=== PATIENT | male | born 1970 | race Caucasian/White ===

== ENCOUNTER 2018-04-28 18:24 | Inpatient (IN) | payer MEDICAID ==
--- NOTE | 2018-04-28 18:49 | Emergency Department Record ---
History of Present Illness - General Chief complaint: Swelling of legs Stated complaint: R ANKLE /LEG SWOLLEN/RED/WARM Time Seen by Provider: 04/28/18 18:40 Source: Patient Mode of Arrival: Ambulatory Limitations: No limitations - History of Present Illness Initial comments: The patient is here due to R ankle pain, swelling, and redness for 2 weeks. He was admitted to [facility] [place] for a week and was discharged 6 days ago. The patient states he was being treated for Cellulitis then and did have an I and D performed but no purulence was expressed. The patient states he also had a neg R leg doppler performed during his stay. After discharge he was sent to the infusion center once and was told he would need to return in 2 weeks. Presently he is on no oral Abx's. Now the patient states the ankle is doing worse and is getting more painful, red, swollen and tender. He denies any trauma, fever, chills, or previous injury. MD Complaint: Extremity pain, Extremity swelling Onset/Timin -: Week(s) History of Same: No Severity scale (1-10): 5 Quality: Burning Improves with: Nothing Worsens with: Nothing Associated Symptoms: Denies other symptoms - Related Data Home Medications Medication Instructions Recorded Confirmed Last Taken No Home Med [NO HOME MEDS] 04/28/18 04/28/18 Unknown Allergies Allergy/AdvReac Type Severity Reaction Status Date / Time carbamazepine [From Tegretol] Allergy RASH Verified 04/28/18 18:43 lamotrigine [From Lamictal] Allergy RASH Verified 04/28/18 18:43 meperidine [From Demerol] Allergy PT UNSURE Verified 04/28/18 18:43 OF REACTION phenytoin [From Dilantin] AdvReac VOMITING Verified 04/28/18 18:43 Travel Screening - Travel/Exposure Within Last 30 Days Have you traveled within the last 30 days?: No - Travel/Exposure Within Last Year Have you traveled outside the [place] in the last year?: No - Additonal Travel Details Have you been exposed to anyone with a communicable illness?: No - Travel Symptoms Symptom Screening: None Review of Systems Constitutional: Denies: Chills, Fever Eyes: Denies: Eye discharge ENT: Denies: Congestion Respiratory: Denies: Cough, Dyspnea, Hemoptysis Past Medical History - SOCIAL HISTORY Smoking Status: Never smoker Alcohol Use: None Drug Use: None - RESPIRATORY Hx Respiratory Disorders: No - CARDIOVASCULAR Hx Cardio Disorders: No - NEURO Hx Neuro Disorders: Yes Hx Seizures: Yes - GI Hx GI Disorders: No - Hx Genitourinary Disorders: Yes Comment:: testicular torsion - ENDOCRINE Hx Endocrine Disorders: No - MUSCULOSKELETAL Hx Musculoskeletal Disorders: No - PSYCH Hx Psych Problems: No - HEMATOLOGY/ONCOLOGY Hx Hematology/Oncology Disorders: No Family Medical History Any Significant Family History?: No Physical Exam - General General Appearance: Alert, Oriented x3, Cooperative, No acute distress - Head Head exam: Atraumatic, Normocephalic, Normal inspection - Eye Eye exam: Normal appearance, PERRL - Extremities Extremities exam: Joint swelling (R ankle.), Normal capillary refill, Tenderness (There is diffuse tenderness to the anterio ankle area.). negative: Normal inspection (The R ankle is tender, swollen, erythematous and warm. ), Calf tenderness, Full ROM, Pedal edema - Neurological Neurological exam: Alert, Normal gait. negative: Abnormal gait, Motor sensory deficit Course Vital Signs 04/28/18 18:27 Temperature 98.6 F Pulse Rate 76 Respiratory 16 Rate Blood Pressure 150/92 Pulse Ox 96 - Reevaluation(s) Reevaluation #1: The patient is resting comfortably with no changes presently. We will start him on Percocet for pain and Clindamycin for an IV Abx. Due to failing outpatient therapy I did recommend inpatient care and the patient agreed. I then did discuss the case with Lety (DIRECTOR BIOINFORMAT[employer]) and she does accept the admission for Dr. Harley. 04/28/18 19:35 Reevaluation #2: The patient's records from [facility] [place] were reviewed and he did have a neg R leg Doppler on 04/20 and did have an I and D which did not find any purulence. 04/28/18 19:36 Medical Decision Making - Data Complexity MDM Data: Labs Ordered and/or Reviewed, X-Ray Ordered and/or Reviewed - Lab Data Result diagrams: 04/28/18 18:50 04/28/18 18:50 - Radiology Data Radiology results: Report reviewed (R ankle: Neg for acute bony changes.) Disposition Disposition: Discharge Clinical Impression: Cellulitis Qualifiers: Site of cellulitis: unspecified site Qualified Code(s): L03.90 - Cellulitis, unspecified Disposition: Still a Patient at [facility] Decision to Admit: Admit from ER Decision to Admit Date: 04/28/18 Decision to Admit Time: 19:37 Accepting Physician: Cricket Time Discussed w/Accepting Physician: 19:37 Condition: (2) Stable Time of Disposition: 19:37 Quality - Quality Measures Quality Measures: N/A - Blood Pressure Screening View Details: Yes Does Patient Have Any of the Following: No Blood Pressure Classification: Hypertensive Reading Systolic Measurement: 150 Diastolic Measurement: 92 Screening for High Blood Pressure: < First Hypertensive BP, F/U Documented > [ G8950] First Hypertensive Follow-up Interventions: Referral to alternative/primary care provider.
[2018-04-28 19:01] LABS: BASO % 0.9 % (0-6); EOS % 9.1 % (0-6); HEMATOCRIT 41.7 % (42.0-52.0); HEMOGLOBIN 14.4 gm/dl (14.0-18.0); LYMPH % 47.3 % (16-45); MEAN CELL VOLUME 82.7 fl (81-97); MEAN CORPUSCULAR HEMOGLOBIN 28.6 pg (27-33); MEAN CORPUSCULAR HGB CONC 34.5 g/dl (32-36); MEAN PLATELET VOLUME 11.3 fl (7.4-10.4); MONO % 8.7 % (0-9); PLATELET COUNT 255 K/uL (130-400); RED BLOOD COUNT 5.04 M/uL (4.40-5.70)
[2018-04-28 19:13] LABS: BLOOD UREA NITROGEN 9 mg/dL (6-20); CREATININE 0.7 mg/dL (0.7-1.2); EST GLOMERULAR FILTRATION RATE > 60 mL/min
[2018-04-28 19:14] LABS: TOTAL PROTEIN 7.5 g/dL (6.6-8.7)
[2018-04-28 19:15] LABS: GLUCOSE,RANDOM 93 mg/dL (74-109)
[2018-04-28] MEDS ORDERED: CLINDAMYCIN 600MG/50ML PREMIX 600 MG/50 ML BAG IVPB ONE (19:17)
[2018-04-28 19:18] LABS: ALB/GLOB RATIO 1.5 (1.1-1.8); ALBUMIN 4.5 g/dL (4.0-5.0); ALKALINE PHOSPHATASE 124 U/L (40-129); ALT/SGPT 57 U/L (<41); AST/SGOT 32 U/L (10.0-50.0); C-REACTIVE PROTEIN 0.07 mg/dL (<0.5)
[2018-04-28] MEDS ORDERED: OXYCODONE/APAP 7.5MG/325MG TABLET PO ONE (19:29)
[2018-04-28 19:40] LABS: ERYTHROCYTE SEDIMENTATION RATE 16 mm/hr (0-15)
[2018-04-28] MEDS ORDERED: ACETAMINOPHEN 325 MG TAB PO PRN (20:18)
[2018-04-28] MEDS: CLINDAMYCIN 600MG/50ML PREMIX 600 MG/50 ML BAG IVPB SCH (21:22)
[2018-04-29] MEDS: CLINDAMYCIN 600MG/50ML PREMIX 600 MG/50 ML BAG IVPB SCH ×2 (03:51→12:21)
[2018-04-29] MEDS: OXYCODONE/APAP 7.5MG/325MG TABLET PO PRN ×2 (07:24→21:51)
--- NOTE | 2018-04-29 07:52 | RADIOLOGY REPORT ---
EXAM: RIGHT ANKLE HISTORY: RIGHT LOWER EXTREMITY SWELLING AND REDNESS. TECHNIQUE: Three views of the right ankle were obtained. Comparison: None. FINDINGS: There is soft tissue swelling. No radiopaque foreign body. No soft tissue gas. No fracture or acute osseous abnormality. No destructive or erosive change. IMPRESSION: 1. DIFFUSE SOFT TISSUE SWELLING. 2. RIGHT ANKLE OTHERWISE UNREMARKABLE. JOB NUMBER: [id number] MTDD
--- NOTE | 2018-04-29 12:18 | History & Physical ---
History of Present Illness - Date of Service Date of Service for History & Physical: 04/29/18 - History of Present Illness Admitting Diagnosis: 1. R Lower Leg Cellulitis. History of Present Illness: Joby Sheppard is a 48 y/o male presenting to the ED with right ankle and leg pain. He was recently discharged for [facility] 04/22 after a stay for treatment of RLE and foot cellulitis. While at [facility] he initially received Rocephin, then Clindamycin, Vacomycin, Zosyn, Daptomycin respectfully. He subsequently had an I & D of cellulitic area for fear of underlying abscess. No purulence was expressed and cultures did not reveal MRSA. He was then consulted by ID who recommended Dalvance infusions as outpatient. He was supposed to follow up 04/23 , the day after discharge from [facility] for first Dalvance infusion in which he did get. His next dose is supposed to be 8/8. 4 days ago right ankle became more red, swollen, painful. Venous doppler 1 week ago at [facility] was negative for DVT right leg. Patient thinks this may have all started after helping his father with yard work and thinks he may have been bitten by a spider. No previous hx of gout, he does report about a month ago when then ankle pain and redness started he was started on gout medication and indocin which did not help. While in ED lab work unremarkable for acute infection, ESR was elevated, CRP normal. Right ankle x-ray showed diffuse soft tissue swelling, otherwise normal. Admitted for observation, reinitiation of IV Clindamycin and pain control. 04/29/18- 1200- resting in bed comfortably. No fevers overnight. Reports right foot pain is about 5/10, percocet for pain is working well to keep pain controlled. Feels at this point the redness to right ankle and foot is not much improved since start of IV Clindamycin, pain is improved from 6/10. Denies any adverse reaction to antibiotics Travel Screening - Travel/Exposure Within Last 30 Days Have you traveled within the last 30 days?: No - Travel/Exposure Within Last Year Have you traveled outside the [place] in the last year?: No - Additonal Travel Details Have you been exposed to anyone with a communicable illness?: No - Travel Symptoms Symptom Screening: None Review of Systems Constitutional: Denies: Chills, Fever Eyes: Denies: Eye discharge ENT: Denies: Congestion Respiratory: Denies: Cough, Dyspnea, Hemoptysis Past Medical History - SOCIAL HISTORY Smoking Status: Never smoker Alcohol Use: None Drug Use: None - RESPIRATORY Hx Respiratory Disorders: No - CARDIOVASCULAR Hx Cardio Disorders: No - NEURO Hx Neuro Disorders: Yes Hx Seizures: Yes - GI Hx GI Disorders: No - Hx Genitourinary Disorders: Yes Comment:: testicular torsion - ENDOCRINE Hx Endocrine Disorders: No - MUSCULOSKELETAL Hx Musculoskeletal Disorders: No - PSYCH Hx Psych Problems: No - HEMATOLOGY/ONCOLOGY Hx Hematology/Oncology Disorders: No Family Medical History Any Significant Family History?: No H&P Meds/Allergies - Allergies Allergies: Allergies Allergy/AdvReac Type Severity Reaction Status Date / Time carbamazepine [From Tegretol] Allergy RASH Verified 04/28/18 18:43 lamotrigine [From Lamictal] Allergy RASH Verified 04/28/18 18:43 meperidine [From Demerol] Allergy PT UNSURE Verified 04/28/18 18:43 OF REACTION phenytoin [From Dilantin] AdvReac VOMITING Verified 04/28/18 18:43 - Home Medications Home Medications Medication Instructions Recorded Confirmed Last Taken No Home Med [NO HOME MEDS] 04/28/18 04/28/18 Unknown - Active Medications Active Medications: Current Medications Acetaminophen (Tylenol 325mg) 650 mg PO Q6H PRN PRN Reason: PAIN - MILD(1-4)/FEVER Clindamycin Phosphate (Cleocin 600 [id number]) 600 mg in 50 mls @ 100 mls/ hr IVPB Q8H [facility] Last Infusion: 04/29/18 04:29 Dose: Infused Oxycodone/Acetaminophen (Percocet 7.5-325 Mg Tablet) 1 each PO Q4H PRN PRN Reason: PAIN - MOD TO SEVERE (5-10) Stop: 05/05/18 20:19 Last Admin: 04/29/18 07:24 Dose: 1 each Physical Exam - Vital Signs Vital Signs: Vital Signs - Last 24 Hrs Temp Pulse Pulse Resp BP BP BP 04/29/18 11:41 97.7 F 72 18 144/91 04/29/18 09:00 73 18 04/29/18 07:58 97.0 F L 73 18 136/84 04/28/18 21:20 98.1 F 52 L 16 143/71 04/28/18 21:00 54 L 16 04/28/18 20:10 97.9 F 61 18 149/92 04/28/18 18:27 98.6 F 76 16 150/92 Pulse Ox 04/29/18 11:41 96 04/29/18 09:00 04/29/18 07:58 97 04/28/18 21:20 98 04/28/18 21:00 04/28/18 20:10 100 04/28/18 18:27 96 - General General Appearance: Alert, Oriented x3, Cooperative, No acute distress Limitations: No limitations - Head Head exam: Atraumatic, Normocephalic, Normal inspection - Eye Eye exam: Normal appearance, PERRL - Neck Neck exam: Normal inspection, Full ROM - Cardiovascular Cardiovascular Exam: Regular rate, Normal rhythm Peripheral Pulses: 3+: Dorsalis Pedis (R), Dorsalis Pedis (L) - GI/Abdominal GI/Abdominal exam: Soft, Normal bowel sounds. negative: Tenderness - Extremities Extremities exam: Joint swelling (R ankle.), Normal capillary refill, Tenderness (There is diffuse tenderness to the anterior ankle area.). negative : Normal inspection (The R ankle is tender, swollen, erythematous and warm. ), Calf tenderness, Full ROM, Pedal edema - Neurological Neurological exam: Alert, Normal gait, Oriented X3. negative: Abnormal gait, Motor sensory deficit - Skin Skin exam: Erythema (diffuse erythema dorsal aspect of foot extending to lower leg. There is a small healing wound to dorsal medial aspect of right upper foot) Description of rash: negative: Blisters Results - Labs Result Diagrams: 04/28/18 18:50 04/28/18 18:50 Labs Last 24 Hours: Laboratory Results - last 24 hr 04/28/18 04/28/18 18:50 18:50 WBC 8.0 RBC 5.04 Hgb 14.4 Hct 41.7 L MCV 82.7 MCH 28.6 MCHC 34.5 RDW 14.0 Plt Count 255 MPV 11.3 H Gran % 34.0 L Lymphocytes % 47.3 H Monocytes % 8.7 Eosinophils % 9.1 H Basophils % 0.9 ESR 16 H Sodium 139 Potassium 4.3 Chloride 100 Carbon Dioxide 29.0 Anion Gap 10.0 BUN 9 Creatinine 0.7 Estimated GFR > 60 Random Glucose 93 Calcium 10.6 H Total Bilirubin 0.50 AST 32 ALT 57 H Alkaline Phosphatase 124 C-Reactive Protein 0.07 Total Protein 7.5 Albumin 4.5 Globulin 3.0 Albumin/Globulin Ratio 1.5 VTE H&P Assessment - Risk for VTE Risk for VTE: Yes Risk Level: Low Risk Assessment Date: 04/29/18 Risk Assessment Time: 12:46 VTE Orders Placed or Will Be Placed: Yes Plan - Inpatient Certification Inpatient Certification: Admit to inpatient care: Based on my medical assessment, after consideration of patient's risk factors (age, co-morbidities and patient presenting symptoms and acuity), I expect that this patient will remain in the hospital greater than or equal to two midnights and that the services needed warrant inpatient care because: Patient Risk Factors: [failed outpatient treatment of cellulits, recent hospital admission within the last 30 days for same] Estimated length of stay: [48-72 hours] The patient may reasonably be expected to be discharged or transferred to a hospital within 96 hours after admission to [facility]. Services needed: [IV antibiotics, nursing, pain management] Post hospital care (if known): [] I certify that my determination is in accordance with my understanding of Medicare requirements for reasonable and necessary inpatient services. 04/29/18 12:46 - Detailed Diagnosis and Plan (1) Cellulitis Current Visit: Yes Status: Acute Qualifiers: Site of cellulitis: unspecified site Qualified Code(s): L03.90 - Cellulitis , unspecified Base Code: L03.90 - CELLULITIS, UNSPECIFIED Comment: 05/16/18 - Recent admission to [facility] for right ankle and foot cellulitis. Received several different antibiotics incluidng Rocephin, Clindamycin, Zosyn, Vancomycin , Daptomycin. I&D of area with little purulence, culture with NO evidence of MRSA. ID consulted at the time and recommended Dalvance as outpatient- received first dose 04/23/18 - Will empirically treat with Clindamycin 600mg IV Q 8 hrs and if no improvement in 24 hours of dosing will change to Vancomycin - May need to consider transfer back to [facility] if no improvement after 48 hours and/or no improvement after Vancomycin trial - Uric acid pending - Pain control with Percocet 7.5/325mg Q 4hr PRN (2) DVT prophylaxis Current Visit: Yes Status: Acute Base Code: [id number] - Comment: 04/29/18 - nursing to encourage frequent ambulation (3) Full code status Current Visit: Yes Status: Acute Base Code: Z78.9 - OTHER SPECIFIED HEALTH STATUS Comment: 04/29/18
[2018-04-29] MEDS: VANCOMYCIN HCL 1,000 MG in DEXTROSE 5 % IN WATER 250 ML IVPB SCH ×4 (15:39→22:49)
--- NOTE | 2018-04-30 10:22 | Discharge Summary ---
Providers Discharge Summary Date: 04/30/18 Date of admission: 04/28/18 20:07 Expected Date of Discharge: 04/30/18 Attending physician: SAL MAURICE Primary care physician: JOHN EAST Physical Exam - Vital Signs Vital Signs: Vital Signs - Last 24 Hrs Temp Pulse Resp BP Pulse Ox 04/30/18 07:50 98 F 63 18 139/82 96 04/30/18 07:32 72 20 04/29/18 20:00 99 F 80 18 139/83 95 04/29/18 16:00 98.7 F 83 18 152/98 94 L 04/29/18 11:41 97.7 F 72 18 144/91 96 - General General Appearance: Alert, Oriented x3, Cooperative, No acute distress Limitations: No limitations - Head Head exam: Atraumatic, Normocephalic, Normal inspection - Eye Eye exam: Normal appearance, PERRL - Neck Neck exam: Normal inspection, Full ROM - Cardiovascular Cardiovascular Exam: Regular rate, Normal rhythm Peripheral Pulses: 3+: Dorsalis Pedis (R), Dorsalis Pedis (L) - GI/Abdominal GI/Abdominal exam: Soft, Normal bowel sounds. negative: Tenderness - Extremities Extremities exam: Joint swelling (R ankle, improved from yesterday), Normal capillary refill, Tenderness (There is diffuse tenderness to the anterior ankle area, improved from yesterday). negative: Normal inspection (The R ankle is tender, swollen, erythematous and warm. ), Calf tenderness, Full ROM, Pedal edema - Neurological Neurological exam: Alert, Normal gait, Oriented X3. negative: Abnormal gait, Motor sensory deficit - Skin Skin exam: Erythema (diffuse erythema dorsal aspect of foot extending to lower leg. There is a small healing wound to dorsal medial aspect of right upper foot. Erythema and swelling has improved from yesterday) Description of rash: negative: Blisters Hospitalization - Hospitalization Admission Diagnosis: 1. R Lower Leg Cellulitis. - Problem List/Discharge Diagnosis (1) Cellulitis Current Visit: Yes Status: Acute Discharge Diagnosis: Site of cellulitis: unspecified site Qualified Code(s): L03.90 - Cellulitis , unspecified Base Code: L03.90 - CELLULITIS, UNSPECIFIED Comment: 04/30/18 - Recent admission to [facility] for right ankle and foot cellulitis. Received several different antibiotics incluidng Rocephin, Clindamycin, Zosyn, Vancomycin , Daptomycin. I&D of area with little purulence, culture with NO evidence of MRSA. ID consulted at the time and recommended Dalvance as outpatient- received first dose 04/23/18 - Will empirically treat with Clindamycin 600mg IV Q 8 hrs and if no improvement in 24 hours of dosing will change to Vancomycin - Vancomycin 1,000mg Q 12hrs started 04/29/18 in the evening as no clinical improvement after 24 hours of Clindamyin 600mg IV BID - There has been clinical improvement in right foot/lower leg cellulitis since initiating Vancomycin - Uric acid normal - Pain control with Percocet 7.5/325mg Q 4hr PRN - Plan to discharge home on Bactrim DS BID until follow up visit with Dr Au (2) DVT prophylaxis Current Visit: Yes Status: Acute Base Code: [id number] - Comment: 04/30/18 - nursing to encourage frequent ambulation (3) Full code status Current Visit: Yes Status: Acute Base Code: Z78.9 - OTHER SPECIFIED HEALTH STATUS Comment: 04/30/18 - Hospitalization Course Disposition: Home, Self-Care Hospital Course: Joby Sheppard is a 48 y/o male presenting to the ED with right ankle and leg pain. He was recently discharged for [facility] 04/05/25 after a stay for treatment of RLE and foot cellulitis. While at [facility] he initially received Rocephin, then Clindamycin, Vacomycin, Zosyn, Daptomycin respectfully. He subsequently had an I & D of cellulitic area for fear of underlying abscess. No purulence was expressed and cultures did not reveal MRSA. He was then consulted by ID who recommended Dalvance infusions as outpatient. He was supposed to follow up 04/23 , the day after discharge from [facility] for first Dalvance infusion in which he did get. His next dose is supposed to be 05/06. 4 days ago right ankle became more red, swollen, painful. Venous doppler 1 week ago at [facility] was negative for DVT right leg. Patient thinks this may have all started after helping his father with yard work and thinks he may have been bitten by a spider. No previous hx of gout, he does report about a month ago when then ankle pain and redness started he was started on gout medication and indocin which did not help. While in ED lab work unremarkable for acute infection, ESR was elevated, CRP normal. Right ankle x-ray showed diffuse soft tissue swelling, otherwise normal. Admitted for observation, reinitiation of IV Clindamycin and pain control. 04/29/18- 1200- resting in bed comfortably. No fevers overnight. Reports right foot pain is about 5/10, percocet for pain is working well to keep pain controlled. Feels at this point the redness to right ankle and foot is not much improved since start of IV Clindamycin, pain is improved from 6/10. Denies any adverse reaction to antibiotics 04/30/18 1020- Yesterday evening Clindamycin was changed to Vancomycin 1gm Q 12 hours due to little clinical improvement in cellulitis. There has been clinical improvement in swelling and redness since initiation of Vancomycin. Pain has been controlled with the use of Percocet 7.5/325mg. Upon arrival to ED patient did not present with obvious active infectious process, uric aci/d was normal, but is responding to antibiotic therapy. Will plan to discharge on Bactrim DS until his follow up with ID Dr Au 05/07/18. Procedures: Imaging and X-Rays 04/28/18 18:44 ANKLE RIGHT 3 VIEWS [RAD] Stat Abnormal Labs: Abnormal Lab Results 04/28/18 04/28/18 Range/Units 18:50 18:50 Hct 41.7 L (42.0-52.0) % MPV 11.3 H (7.4-10.4) fl Gran % 34.0 L (47-80) % Lymphocytes % 47.3 H (16-45) % Eosinophils % 9.1 H (0-6) % ESR 16 H (0-15) mm/hr Calcium 10.6 H (8.6-10.0) mg/dL ALT 57 H (<41) U/L Condition at Discharge: (2) Stable Discharge Medications - Discharge Medications Prescriptions: Ibuprofen [Motrin] 800 mg PO Q6H PRN #60 tab PRN Reason: Pain - Mild (1-4) Oxycodone HCl/Acetaminophen [Percocet 7.5mg/325mg] 1 each PO Q4H PRN #30 tab PRN Reason: Pain - Mod To Severe (5-10) Sulfamethoxazole/Trimethoprim [Bactrim Ds Tablet] 1 each PO BID 7 Days #14 tablet Home Medications: Ambulatory Orders Ibuprofen [Motrin] 800 mg PO Q6H PRN #60 tab 04/30/18 [Last Taken Unknown] Oxycodone HCl/Acetaminophen [Percocet 7.5mg/325mg] 1 each PO Q4H PRN #30 tab 11/16 [Last Taken Unknown] Sulfamethoxazole/Trimethoprim [Bactrim Ds Tablet] 1 each PO BID 7 Days #14 tablet 04/30/18 [Last Taken Unknown] Discharge Plan - Discharge Instructions Activity at Discharge: Increase Activity as Tolerated Diet at Discharge: Regular Diet Additional Instructions: Follow up with Dr. Au with Infectious Disease on 05/07/18 at 10:00AM. [address], [address] [place] [address], Quality Measures - Quality Measures Quality Measures: Documentation of Current Medications in Medical Record, Screening for High Blood Pressure and F/U Documented - Current Medications Quality Measure: Measure #130: Documentation of Current Medications Documentation of Current Medications: <Current Medications Documented/Reviewed> [G8427] - Blood Pressure Screening Quality Measure: Screening for High Blood Pressure and Follow-Up Documented Does Patient Have Any of the Following: No Blood Pressure Classification: Hypertensive Reading Systolic Measurement: 150 Diastolic Measurement: 92 Screening for High Blood Pressure: < Normal BP, F/U Not Required > [G8783] - Elder Abuse Suspicion Index EASI Reference Information: Shira SPENCER, Tacos C, Eliot D, Liliya Badillo.Development and validation of a tool to assist physicians identification of elder abuse: The Elder Abuse Suspicion Index (EASI ). Journal of Elder Abuse and Neglect, 2008; 20 (3): 276-300.
== END 2018-04-30 11:30 | disposition home or self-care (01) | DRG 603 ==
LOC: ER 18:24 → MEDSURG 20:07
PROVIDERS: ADMIT Internal Medicine; ATTEND Internal Medicine
DX: L03.115 Cellulitis of right lower limb (principal); M79.661 Pain in right lower leg
CPT/HCPCS: 80053; 84550; 85025; 85651; 86140; 96365; 96366; 99223; 99238; 99285; J7060